=== PATIENT | male | born 1970 | race African-American/Black ===

== ENCOUNTER 2017-12-05 10:22 | Day surgery (SDC) | payer OTHER ==
[2017-12-05 11:14] LABS: ADD MAN DIFF? NO
[2017-12-05 11:17] LABS: WHITE BLOOD COUNT 6.7 10^3/ul (4.8-10.8)
[2017-12-05 11:17] LABS: BASOPHILS % 0.3 % (0.0-2.0); EOSINOPHILS # 0.1 10^3/ul (0.0-0.5); EOSINOPHILS % 0.7 % (0.0-7.0); HEMOGLOBIN 12.4 g/dl (14.0-18.0); LYMPHOCYTES # 2.5 10^3/ul (0.8-2.9); LYMPHOCYTES % 37.9 % (15.0-51.0); MEAN CORPUSCULAR HEMOGLOBIN 28.5 pg (29.0-33.0); MEAN CORPUSCULAR HGB CONC 32.6 g/dl (32.0-37.0); MEAN CORPUSCULAR VOLUME 87.4 fl (82.0-101.0); MEAN PLATELET VOLUME 9.7 fl (7.4-10.4); MONOCYTE # 0.5 10^3/ul (0.3-0.9); MONOCYTES % 7.3 % (0.0-11.0); NEUTROPHIL # 3.6 10^3/ul (1.6-7.5); NEUTROPHILS % 53.5 % (39.0-77.0); PLATELET COUNT 220 10^3/UL (140-415); RED BLOOD COUNT 4.35 10^6/ul (4.70-6.10); RED CELL DISTRIBUTION WIDTH 12.6 % (11.5-14.5)
[2017-12-05] MEDS ORDERED: DIAZEPAM 5 MG TAB PO (11:30)
[2017-12-05] MEDS ORDERED: FAMOTIDINE 20 MG TAB PO (11:30)
[2017-12-05] MEDS ORDERED: SOD CHLORIDE 0.45% 1,000 ML IV (11:30)
[2017-12-05] MEDS ORDERED: DIPHENHYDRAMINE 50 MG CAP PO (11:30)
[2017-12-05 11:34] LABS: ANION GAP 13 (8-16); CARBON DIOXIDE 30 mmol/L (21-31); CHLORIDE 107 mmol/L (97-110); CHOL/HDL RATIO 2.9 RATIO; CHOLESTEROL 160 mg/dl (100-200); GLUCOSE 101 mg/dl (70-220); HDL CHOLESTEROL 55 mg/dl (27-67); LDL CHOLESTEROL,CALCULATED 90 mg/dl; TRIGLYCERIDES 76 mg/dl (0-149)
[2017-12-05 11:35] LABS: BLOOD UREA NITROGEN 13 mg/dl (7-20); CALCIUM 9.5 mg/dl (8.4-10.2); CREATININE 1.09 mg/dl (0.61-1.24); POTASSIUM 4.4 mmol/L (3.5-5.1); SODIUM 146 mmol/L (135-144)
[2017-12-05 11:38] LABS: INR 0.97; PARTIAL THROMBOPLASTIN TIME 26.3 Sec (25.0-35.0)
[2017-12-05] MEDS ORDERED: LIDOCAINE 1% (MDV) 20 ML INJ (12:08)
[2017-12-05] MEDS ORDERED: IODIXANOL LOCM 100 ML BTL (12:08)
[2017-12-05] MEDS ORDERED: HEPARIN 1000 UNITS/ML 10 ML INJ (12:08)
[2017-12-05] MEDS ORDERED: VERAPAMIL 5 MG INJ (12:09)
[2017-12-05] MEDS ORDERED: MIDAZOLAM 1 MG/ML 2 ML INJ (12:09)
[2017-12-05] MEDS ORDERED: NITROGLYCERIN (IC) 100 MCG/ML INJ (12:09)
[2017-12-05] MEDS ORDERED: FENTAnyl 50 MCG/ML VIAL (12:14)
[2017-12-05] MEDS: SOD CHLORIDE 0.9% 1,000 ML IV (13:33)
[2017-12-05] MEDS ORDERED: ONDANSETRON 4 MG INJ IV (14:00)
[2017-12-05] MEDS ORDERED: ACETAMINOPHEN 325 MG TAB PO (14:00)
[2017-12-05] MEDS ORDERED: morphine 2 MG INJ IV (14:00)
[2017-12-05] MEDS ORDERED: AL HYDROX/MG HYDROX/SIMETH 30 ML CUP PO (14:00)
== END 2017-12-05 16:40 | disposition home or self-care (01) ==
LOC: SDS 10:22
DX: I25.10 Atherosclerotic heart disease of native coronary artery without angina pectoris (principal); I10 Essential (primary) hypertension; R94.31 Abnormal electrocardiogram [ECG] [EKG]; K21.9 Gastro-esophageal reflux disease without esophagitis; I34.0 Nonrheumatic mitral (valve) insufficiency
CPT/HCPCS: 71045; 80048; 80061; 85025; 85610; 85730; 93005; 93458